=== PATIENT | male | born 1935 | race Caucasian/White ===

== ENCOUNTER 2018-08-02 22:27 | Emergency (ER) | payer MEDICARE ==
[~2018-08-02] VITALS: Ht 177.8 cm; Wt 73.0 kg
[2018-08-02] MEDS ORDERED: ACETAMINOPHEN 500 MG TABLET PO ONE (22:55)
[2018-08-02] MEDS ORDERED: LIDODERM 5% PATCH TD ONE (23:00)
[2018-08-02] MEDS ORDERED: ACETAMINOPHEN 500 MG TABLET ONE (23:05)
[2018-08-02 23:20] VITALS: BP 123/76
[2018-08-02] MEDS ORDERED: IBUP-1222 PO (23:24)
[2018-08-02] MEDS ORDERED: CHOL400C PO (23:24)
[2018-08-02] MEDS ORDERED: METO200T47 PO (23:24)
[2018-08-02] MEDS ORDERED: OMEP10CA4 PO (23:24)
[2018-08-02] MEDS ORDERED: [UNRECOGNIZED DRUG - OTHER] (23:24)
[2018-08-02] MEDS ORDERED: ATOR20TA9 PO (23:24)
== END 2018-08-03 00:09 | disposition home or self-care (01) ==
LOC: EDBD 22:27 → ED 23:59
DX: M54.5 Low back pain (principal); M79.18 Myalgia, other site; G89.29 Other chronic pain; I25.2 Old myocardial infarction; I10 Essential (primary) hypertension
CPT/HCPCS: 99283